=== PATIENT | female | born 1965 | race Caucasian/White ===

== ENCOUNTER 2017-01-19 21:22 | Emergency (ER) | payer MEDICARE ==
[~2017-01-19 21:22] MED LIST: ADDERALL 20 MG20 M1 PO; AZITHROMYCIN250 M1 PO; BUSPAR5 MG PO; CHERATUSSIN AC118 M1 PO; CYCLOBENZAPRINE5 M1 PO; DOXY-LEMMON100 MG PO; EFFEXOR PO; EFFEXOR XR37.5 M1 PO; EFFEXOR XR75 M1 PO; EFFEXOR25 MG PO; HYDROCODON-ACE1 EAC7 PO; KLONOPIN0.5 M1 PO; LAMICTAL150 MG PO; LAMICTAL200 M1 PO; LAMICTAL200 M2 PO; MOBIC15 M1 PO; NAPROXEN500 M1 PO; NEURONTIN400 M1 PO; NORCO 5-325 TA1 EACH PO; NORCO 5/325 TAB1 TAB PO; NORCO 5/3251 TA1 PO; NORCO 5/3251 TA2 PO; NORCO 5/3251 TAB PO; NORFLEX100 MG PO; PERCOCET 5/3251 TAB PO; PREDNISONE10 M1 PO; PROAIR HFA8.5 GM IH; PROAIR HFA8.5 GM INH; PROVENTIL HFA6.7 G1 IH; PROVENTIL HFA6.7 GM IH; RESTORIL15 M1 PO; SKELAXIN800 M1 PO; SOMA250 MG PO; SOMA350 MG PO; TAMIFLU75 MG PO; TUSSIONEX PO; TYLENOL325 M2 PO; XANAX1 MG PO; ZANAFLEX2 M3 PO; ZITHROMAX250 M1 PO; ZITHROMAX250MG Z-PAK PO; [UNRECOGNIZED DRUG - OTHER] PO
[2017-01-19] MEDS ORDERED: VENTOLIN HFA18 G2 INH (23:15)
[2017-07-05] MEDS ORDERED: LIPITOR20 M1 PO (13:33)
== END 2017-01-19 23:20 ==
LOC: EDMED 21:22
DX: B34.9 Viral infection, unspecified (principal); Z90.89 Acquired absence of other organs; F31.89 Other bipolar disorder; F17.200 Nicotine dependence, unspecified, uncomplicated; Z98.890 Other specified postprocedural states; Z79.899 Other long term (current) drug therapy

== ENCOUNTER 2017-07-05 18:05 | Inpatient (IN) | payer MEDICARE, MEDICAID ==
[~2017-07-05] VITALS: Ht 165.1 cm; Wt 65.6 kg
[~2017-07-05 18:05] MED LIST changes: +LIPITOR20 M1 PO; +VENTOLIN HFA18 G2 INH
[2017-07-05 19:01] LABS: BASO % 0.3 % (0-2); EOS % 1.8 % (0-7); EOSINOPHIL ABSOLUTE COUNT 0.1 tho/cmm (0.0-0.7); HCT-HEMATOCRIT 37.8 % (34.0-49.0); HGB-HEMOGLOBIN 12.7 gm/dl (12.0-15.5); IMMATURE GRANULOCYTES ABSOLUTE 0.01 tho/cmm (0-0.03); IMMATURE GRANULOCYTES PERCENT 0.2 % (0-0.3); LYMPH % 25.7 % (20-45); LYMPH ABSOLUTE COUNT 1.6 tho/cmm (0.8-4.5); MCH (MEAN CORPUSCULAR HGB) 30.9 pg (28.0-32.0); MCHC MEAN CORPUSCULAR HGB CONC 33.6 % (32.0-36.0); MEAN PLATELET VOLUME 9.5 cmc (9.4-12.4); MONO % 7.2 % (0-12); MONOCYTE ABSOLUTE COUNT 0.4 tho/cmm (0.0-1.2); NEUTROPHILS % 64.8 % (40-80); PLATELET COUNT 238 tho/cmm (150-450); RED BLOOD COUNT 4.11 mil/cmm (4.00-5.20); RED CELL DISTRIBUTION WIDTH 13.2 % (12.4-16.4); WHITE BLOOD COUNT 6.1 tho/cmm (4.0-10.0)
[2017-07-05 19:21] LABS: ALBUMIN 3.2 g/dl (3.5-5.0); ALKALINE PHOSPHATASE 89 U/L (33-138); ALT/SGPT 20 U/L (12-78); ANION GAP 7 mmol/L (0-20); AST/SGOT 22 U/L (10-40); BILIRUBIN,TOTAL 0.3 mg/dl (0-1.5); BLOOD UREA NITROGEN 5 mg/dl (6-24); CALCIUM 8.6 mg/dl (8.5-10.5); CARBON DIOXIDE-VENOUS 31 mmol/L (22-32); CHLORIDE 108 mmol/l (96-110); CREATININE 0.63 mg/dl (0.50-1.10); GLUCOSE 91 mg/dL (70-110); POTASSIUM 3.5 mmol/L (3.7-5.1); SODIUM 142 mmol/L (135-145); eGFR VALUE FOR BLACK >90 mL/Min
[2017-07-05 19:25] LABS: PROTHROMBIN TIME 12.1 SECONDS (9.0-13.6)
[2017-07-05 20:34] LABS: URINE APPEARANCE CLEAR; URINE BILIRUBIN NEGATIVE (NEG); URINE BLOOD MODERATE (NEG); URINE COLOR YELLOW; URINE GLUCOSE (UA) NEGATIVE (NEG); URINE KETONE NEGATIVE (NEG); URINE LEUKOCYTE ESTERASE NEGATIVE (NEG); URINE NITRITE NEGATIVE (NEG); URINE PROTEIN NEGATIVE (NEG)
[2017-07-05 20:41] LABS: URINE EPITHELIAL CELLS 0-2 /[HPF] (0-10); URINE RBC 0-2 /[HPF] (0-5); URINE WBC 0 /[HPF] (0-5)
[2017-07-05] MEDS ORDERED: NORCO 5-325 TA1 EACH PO (21:17)
[2017-07-05] MEDS ORDERED: OPANA10 M1 PO (21:17)
[2017-07-05] MEDS ORDERED: CYCLOBENZAPRINE5 M1 PO (21:18)
[2017-07-06 13:35] LABS: BASO % 0.4 % (0-2); EOS % 5.6 % (0-7); EOSINOPHIL ABSOLUTE COUNT 0.3 tho/cmm (0.0-0.7); HCT-HEMATOCRIT 36.4 % (34.0-49.0); HGB-HEMOGLOBIN 12.1 gm/dl (12.0-15.5); IMMATURE GRANULOCYTES ABSOLUTE 0.01 tho/cmm (0-0.03); IMMATURE GRANULOCYTES PERCENT 0.2 % (0-0.3); LYMPH % 37.3 % (20-45); LYMPH ABSOLUTE COUNT 2.1 tho/cmm (0.8-4.5); MCH (MEAN CORPUSCULAR HGB) 30.7 pg (28.0-32.0); MCHC MEAN CORPUSCULAR HGB CONC 33.2 % (32.0-36.0); MCV (MEAN CELL VOLUME) 92.4 fl (82.0-96.0); MEAN PLATELET VOLUME 9.4 cmc (9.4-12.4); MONOCYTE ABSOLUTE COUNT 0.4 tho/cmm (0.0-1.2); NEUTROPHIL ABSOLUTE COUNT 2.8 tho/cmm (1.6-8.0); NEUTROPHIL-AUTOMATED 2.8 tho/cmm (1.6-8.0); NEUTROPHILS % 49.5 % (40-80); PLATELET COUNT 243 tho/cmm (150-450); RED BLOOD COUNT 3.94 mil/cmm (4.00-5.20); RED CELL DISTRIBUTION WIDTH 13.1 % (12.4-16.4); WHITE BLOOD COUNT 5.6 tho/cmm (4.0-10.0)
[2017-07-06 13:44] LABS: PROTHROMBIN TIME 11.4 SECONDS (9.0-13.6)
[2017-07-06 14:01] LABS: ESR-ERYTHROCYTE SED RATE 19 mm/hr (0-30)
[2017-07-08 15:14] LABS: CSF GLUCOSE 49 mg/dl (40-75)
[2017-07-08 15:41] LABS: CSF APPEARANCE CLEAR (CLEAR); CSF COLOR COLORLESS (COLORLESS); CSF EOSINOPHILS 1 % (0); CSF LYMPHOCYTES 81 % (40-80); CSF MONOCYTES 16 % (15-45); CSF NEUTROPHILS 2 % (0-6); CSF RBC CT 102 cmm (0); CSF TUBE NUMBER CSF TUBE 1; CSF WBC CT 9 cmm (0-10)
[2017-07-09 05:50] LABS: BASO % 0.5 % (0-2); EOS % 4.6 % (0-7); EOSINOPHIL ABSOLUTE COUNT 0.3 tho/cmm (0.0-0.7); HCT-HEMATOCRIT 31.8 % (34.0-49.0); HGB-HEMOGLOBIN 10.3 gm/dl (12.0-15.5); IMMATURE GRANULOCYTES ABSOLUTE 0.01 tho/cmm (0-0.03); IMMATURE GRANULOCYTES PERCENT 0.2 % (0-0.3); LYMPH % 36.1 % (20-45); LYMPH ABSOLUTE COUNT 2.1 tho/cmm (0.8-4.5); MCH (MEAN CORPUSCULAR HGB) 29.9 pg (28.0-32.0); MCHC MEAN CORPUSCULAR HGB CONC 32.4 % (32.0-36.0); MCV (MEAN CELL VOLUME) 92.4 fl (82.0-96.0); MEAN PLATELET VOLUME 9.6 cmc (9.4-12.4); MONO % 9.2 % (0-12); MONOCYTE ABSOLUTE COUNT 0.5 tho/cmm (0.0-1.2); NEUTROPHIL ABSOLUTE COUNT 2.9 tho/cmm (1.6-8.0); NEUTROPHIL-AUTOMATED 2.9 tho/cmm (1.6-8.0); NEUTROPHILS % 49.4 % (40-80); PLATELET COUNT 216 tho/cmm (150-450); RED BLOOD COUNT 3.44 mil/cmm (4.00-5.20); RED CELL DISTRIBUTION WIDTH 13.1 % (12.4-16.4); WHITE BLOOD COUNT 5.9 tho/cmm (4.0-10.0)
[2017-07-09] MEDS ORDERED: NICOTINE PATCH1 EAC2 TP (13:13)
[2017-07-09] MEDS ORDERED: AMOXICILLIN500 M1 PO (13:36)
[2017-07-09] MEDS ORDERED: PLAVIX75 M1 PO (13:37)
[2017-07-09] MEDS ORDERED: ASPIRIN325 M3 PO (13:58)
== END 2017-07-09 15:04 | DRG 65 ==
LOC: EDMED 18:05 → 5EB 20:08 → EMR2 20:08 → 5EB 22:00
PROVIDERS: Nurse Practitioner Family; Psychiatry & Neurology Neurology; ADMIT Family Medicine
PROC: 5A09357 Assistance with Respiratory Ventilation, Less than 24 Consecutive Hours, Continuous Positive Airway Pressure (ICD-10-PCS; principal; 2017-07-06)
PROC: B246ZZ4 Ultrasonography of Right and Left Heart, Transesophageal (ICD-10-PCS; 2017-07-07)
PROC: 009U3ZX Drainage of Spinal Canal, Percutaneous Approach, Diagnostic (ICD-10-PCS; 2017-07-08)
PROC: B01BYZZ Fluoroscopy of Spinal Cord using Other Contrast (ICD-10-PCS; 2017-07-08)
DX: I63.9 Cerebral infarction, unspecified (principal); G81.94 Hemiplegia, unspecified affecting left nondominant side; F31.9 Bipolar disorder, unspecified; F17.220 Nicotine dependence, chewing tobacco, uncomplicated; M79.7 Fibromyalgia; B19.20 Unspecified viral hepatitis C without hepatic coma; W01.0XXA Fall on same level from slipping, tripping and stumbling without subsequent striking against object, initial encounter; M25.562 Pain in left knee; M25.561 Pain in right knee; R26.0 Ataxic gait; F41.9 Anxiety disorder, unspecified; Z98.1 Arthrodesis status; H01.009 Unspecified blepharitis unspecified eye, unspecified eyelid; H04.129 Dry eye syndrome of unspecified lacrimal gland; R09.81 Nasal congestion; J44.9 Chronic obstructive pulmonary disease, unspecified
CPT/HCPCS: A9577; C1760; C1769; C1887; C8925; C8929; J1644; J1650; J2250; J2270; J3010; J7030; J7050